=== PATIENT | female | born 1980 | race African-American/Black ===

== ENCOUNTER → 2024-07-07 | Outpatient (CLI) | payer OTHER | LOC: M PLAIMG 06:40 | PROVIDERS: ATTEND Pain Medicine Interventional Pain Medicine | DX: M54.16 Radiculopathy, lumbar region (principal); M47.816 Spondylosis without myelopathy or radiculopathy, lumbar region ==

== ENCOUNTER → 2024-12-01 | Outpatient (CLI) | payer OTHER | LOC: M WHC 10:06 | PROVIDERS: ATTEND Nurse Practitioner Primary Care | DX: Z12.31 Encounter for screening mammogram for malignant neoplasm of breast (principal); R92.313 Mammographic fatty tissue density, bilateral breasts ==

== ENCOUNTER → 2024-12-22 | Outpatient (REF) | LOC: M PLAIMG 11:56 | PROVIDERS: ATTEND Internal Medicine | DX: R06.02 Shortness of breath (principal) ==